=== PATIENT | female | born 1945 | race Caucasian/White ===

== ENCOUNTER 2018-12-30 11:41 | Emergency (ER) | payer OTHER ==
[2018-12-30 11:58] VITALS: BP 132/93; PULSE 71; TEMP 98.3; BMI 36.6
--- NOTE | 2018-12-30 12:04 | PDOC ---
Rapid Medical Evaluation Chief Complaint: Shortness of Breath Time Seen by Provider: 12/30/18 12:02 Medical Evaluation: Allergies Allergy/AdvReac Type Severity Reaction Status Date / Time No Known Allergies Allergy Verified 12/30/18 11:58 Vital Signs Temp Pulse Resp BP Pulse Ox 98.3 F 71 24 H 132/93 97 12/30/18 11:53 12/30/18 11:53 12/30/18 11:53 12/30/18 11:53 12/30/18 11:53 12/30/18 12:02 I have performed a brief in-person evaluation of this patient. The patient presents with a chief complaint of: SOB with total body itching- h/ o HBV Pertinent physical exam findings: Lungs CTAB. Hyperventilating. No obvious rash present. I have ordered the following: labs, urine, benadryl The patient will proceed to the ED for further evaluation. Discharge Disposition - Diagnosis Itching - Referrals - Patient Instructions - Post Discharge Activity
[2018-12-30 12:59] LABS: BASO % 0.5 % (0-2.0); EOS % 0.9 % (0-4.5); HEMATOCRIT 37.3 % (32.4-45.2); HEMOGLOBIN 12.6 GM/dL (10.7-15.3); LYMPH % 25.1 % (8-40); MCH 28.7 pg (25.7-33.7); MCHC 33.7 g/dl (32.0-36.0); MEAN CELL VOLUME 85.1 fl (80-96); MEAN PLT VOLUME 8.4 fl (7.5-11.1); MONO % 12.4 % (3.8-10.2); NEUT % 61.1 % (42.8-82.8); PLATELET COUNT 238 K/MM3 (134-434); RBC 4.39 M/mm3 (3.60-5.2); RDW 14.2 % (11.6-15.6)
[2018-12-30 13:18] LABS: ALBUMIN 3.4 g/dl (3.4-5.0); BILIRUBIN,TOTAL 0.5 mg/dL (0.2-1); BLOOD UREA NITROGEN 16.9 mg/dL (7-18); CALCIUM 9.2 mg/dL (8.5-10.1); CREATININE 0.8 mg/dL (0.55-1.3); POTASSIUM 4.6 mmol/L (3.5-5.1); TOT PROT 6.9 g/dl (6.4-8.2)
--- NOTE | 2018-12-30 14:58 | PDOC ---
Documentation entered by Valeria Weaver SCRIBE, acting as scribe for Candido Rojas MD. Candido Rojas MD: This documentation has been prepared by the scribeOwen Natalie, SCRIBE, under my direction and personally reviewed by me in its entirety. I confirm that the documentation accurately reflects all work, treatment, procedures, and medical decision making performed by me. History of Present Illness - General Chief Complaint: Shortness of Breath Stated Complaint: RASH Time Seen by Provider: 12/30/18 12:02 History Source: Patient Exam Limitations: No Limitations - History of Present Illness Initial Comments: 12/30/18 13:00 The patient is a 73-year-old Panamanian-speaking female, with a past medical history of HTN, who presents to the ED with 5 days of diffuse itching. The patient has notable redness to the skin. She denies taking any medication at home. She denies any chest pain or shortness of breath. Denies any fevers, chills, nausea, vomiting, diarrhea, or abdominal pain. Allergies: NKA Past History - Past Medical History Allergies/Adverse Reactions: Allergies Allergy/AdvReac Type Severity Reaction Status Date / Time No Known Allergies Allergy Verified 12/30/18 11:58 COPD: No HTN: Yes Liver Disease: (hep b) - Surgical History Appendectomy: Yes - Suicide/Smoking/Psychosocial Hx Smoking History: Never smoked Review of Systems - Review of Systems Able to Perform ROS?: Yes Comments:: 12/30/18 13:01 CONSTITUTIONAL: No fever, no chills, no fatigue EYES: No visual changes ENT: No ear pain, no sore throat CARDIOVASCULAR: No chest pain, no palpitations RESPIRATORY: No cough, no SOB GI: No abdominal pain, no nausea, no vomiting, no constipation, no diarrhea GENITOURINARY: No dysuria, no frequency, no hematuria MUSKULOSKELETAL: No back pain, no joint pain, no myalgias SKIN: (+)Diffuse redness. NEURO: No headache *Physical Exam - Vital Signs Last Vital Signs Temp Pulse Resp BP Pulse Ox 98.3 F 71 24 H 132/93 97 12/30/18 11:53 12/30/18 11:53 12/30/18 11:53 12/30/18 11:53 12/30/18 11:53 - Physical Exam Comments: 12/30/18 13:02 CONSTITUTIONAL: Well-appearing; well-nourished; in no apparent distress HEAD: Normocephalic; atraumatic EYES: PERRL; EOM intact ENMT: External appears normal; normal oropharynx; uvula is midline and is not edematous NECK: Supple; non-tender; no cervical lymphadenopathy, no stridor CARD: Normal S1, S2; no murmurs, rubs, or gallops RESP: Normal chest excursion with respiration; breath sounds clear and equal bilaterally; no wheezes, rhonchi, or rales ABD: Soft, non-distended; non-tender; no palpable organomegaly, no palpable hernias EXT: Normal ROM in all four extremities; non-tender to palpation; distal pulses intact SKIN: Warm, dry, +Urticarial rash to anterior chest and upper back, blanching, without evidence of petechia NEURO: No focal neurological deficiencies. General Appearance: Yes: Appropriately Dressed ED Treatment Course - LABORATORY CBC & Chemistry Diagram: 12/30/18 12:36 12/30/18 12:36 - ADDITIONAL ORDERS Additional order review: 12/30/18 12:36 RBC 4.39 MCV 85.1 MCHC 33.7 RDW 14.2 MPV 8.4 Neutrophils % 61.1 Lymphocytes % 25.1 Monocytes % 12.4 H Eosinophils % 0.9 Basophils % 0.5 - Medications Given in the ED: ED Medications Discontinued Medications Generic Name Dose Route Start Last Admin Trade Name Freq PRN Reason Stop Dose Admin Diphenhydramine HCl 25 mg 12/30/18 12:06 12/30/18 12:38 Benadryl Injection - IM 12/30/18 12:07 Not Given ONCE ONE Diphenhydramine HCl 25 mg 12/30/18 12:26 12/30/18 12:37 Benadryl Injection - IVPUSH 12/30/18 12:27 25 mg ONCE ONE Administration Medical Decision Making - Medical Decision Making 12/30/18 14:56 Patient 73-year-old female with history of hypercholesterolemia who presents with pruritus and urticarial-like rash to anterior chest and upper back. There is no evidence of generalized ALLERGIC reaction. No airway issues are present. Patient received Benadryl with resolution of her symptoms. We'll discharge. *DC/Admit/Observation/Transfer Diagnosis at time of Disposition: Itching, Pruritic rash - Discharge Dispostion Disposition: HOME Condition at time of disposition: Stable - Referrals Referrals: Alonso Tolliver MD [Staff Physician] - - Patient Instructions Printed Discharge Instructions: DI for Rash Additional Instructions: take Benadryl-25 mg orally every 4 hours as needed. Return immediately for difficulty breathing, facial swelling Print Language: AZERI - Post Discharge Activity
== END 2018-12-30 16:21 | disposition home or self-care (01) ==
LOC: JER 11:41
PROC: 3E033GC Introduction of Other Therapeutic Substance into Peripheral Vein, Percutaneous Approach (ICD-10-PCS; principal; 2018-12-30)
DX: R21 Rash and other nonspecific skin eruption (principal); L29.8 Other pruritus; I10 Essential (primary) hypertension; B19.10 Unspecified viral hepatitis B without hepatic coma
CPT/HCPCS: 36415; 80053; 85025; 99281-25

== ENCOUNTER 2019-07-09 09:31 | Emergency (ER) | payer OTHER ==
[2019-07-09 09:41] VITALS: BMI 35.2
[2019-07-09 10:44] LABS: BASO % 0.6 % (0-2.0); EOS % 0.7 % (0-4.5); HEMATOCRIT 41.2 % (32.4-45.2); HEMOGLOBIN 13.9 GM/dL (10.7-15.3); LYMPH % 25.8 % (8-40); MCHC 33.8 g/dl (32.0-36.0); MEAN CELL VOLUME 85.9 fl (80-96); MEAN PLT VOLUME 8.1 fl (7.5-11.1); MONO % 8.6 % (3.8-10.2); NEUT % 64.3 % (42.8-82.8); PLATELET COUNT 236 K/MM3 (134-434); RDW 14.1 % (11.6-15.6); WHITE BLOOD COUNT 5.1 K/mm3 (4.0-10.0)
[2019-07-09 11:10] LABS: EPI CELLS 3.9 /HPF (0-5/HPF); HYALINE CASTS 0 /lpf (0-8); PH,URINE >= 9.0 (5.0-8.0); URINE APPEARANCE CLEAR; URINE BACTERIA 86.7 /hpf (NEGATIVE); URINE BILIRUBIN NEGATIVE (NEGATIVE); URINE COLOR YELLOW; URINE GLUCOSE (UA) NEGATIVE (NEGATIVE); URINE KETONE NEGATIVE (NEGATIVE); URINE LEUK ESTERASE TRACE (NEGATIVE); URINE NITRITE NEGATIVE (NEGATIVE); URINE PROTEIN NEGATIVE (NEGATIVE); URINE RBC 2 /hpf (0-4); URINE UROBILINOGEN 0.2 mg/dL (0.2-1.0); URINE WBC 6 /hpf (0-5)
--- NOTE | 2019-07-09 11:11 | PDOC ---
History of Present Illness - General Chief Complaint: Pain Stated Complaint: BODY PAIN Time Seen by Provider: 07/09/19 10:04 - History of Present Illness Initial Comments: 07/09/19 11:00 73f with pmh of HTN presents with vague symptoms of nervousness for the past 2 weeks and feeling like her "stomach is weak" or "isn't there". She has seen her PCp DR. Rodrigez for this last week and he startged her on Prozac with no relief of symptoms. Patient denies dizziness, nausea, vomiting, diarrhea, abdominal pain, constipation or dysuria. Is able to eat and drink normally. Past History - Past Medical History Allergies/Adverse Reactions: Allergies Allergy/AdvReac Type Severity Reaction Status Date / Time No Known Allergies Allergy Verified 07/09/19 09:39 Home Medications: Ambulatory Orders Amlodipine Besylate [Norvasc -] 5 mg PO DAILY 07/09/19 Fluoxetine HCl [Prozac] 10 mg PO DAILY 07/09/19 Temazepam 15 mg PO ASDIR 07/09/19 COPD: No HTN: Yes Liver Disease: (hep b) - Surgical History Appendectomy: Yes - Psycho Social/Smoking Cessation Hx Smoking History: Never smoked Hx Alcohol Use: No Drug/Substance Use Hx: No Review of Systems - Review of Systems Able to Perform ROS?: Yes Is the patient limited Persian proficient: No Constitutional: No: Symptoms Reported HEENTM: No: Symptoms Reported Respiratory: No: Symptoms reported Cardiac (ROS): No: Symptoms Reported ABD/GI: No: Symptoms Reported Integumentary: No: Symptoms Reported Neurological: Yes: See HPI All Other Systems: Reviewed and Negative *Physical Exam - Vital Signs Last Vital Signs Temp Pulse Resp BP Pulse Ox 98.2 F 75 22 H 144/77 100 07/09/19 09:40 07/09/19 09:40 07/09/19 09:40 07/09/19 09:40 07/09/19 09:40 - Physical Exam General Appearance: Yes: Nourished, Appropriately Dressed. No: Apparent Distress HEENT: positive: EOMI, JOSELIN, Normal ENT Inspection Respiratory/Chest: positive: Lungs Clear, Normal Breath Sounds, Rapid RR. negative: Chest Tender, Respiratory Distress Cardiovascular: positive: Regular Rhythm, Regular Rate, S1, S2 Gastrointestinal/Abdominal: positive: Normal Bowel Sounds, Flat, Soft. negative : Tender Extremity: positive: Normal Capillary Refill, Normal Inspection, Normal Range of Motion Integumentary: positive: Normal Color, Dry, Warm Neurologic: positive: Fully Oriented, Alert. negative: Normal Mood/Affect ( anxious affect) ED Treatment Course - LABORATORY CBC & Chemistry Diagram: 07/09/19 10:30 07/09/19 10:30 - ADDITIONAL ORDERS Additional order review: 07/09/19 10:30 RBC 4.80 MCV 85.9 MCHC 33.8 RDW 14.1 MPV 8.1 Neutrophils % 64.3 Lymphocytes % 25.8 Monocytes % 8.6 Eosinophils % 0.7 Basophils % 0.6 - RADIOLOGY Radiology Studies Ordered: Category Date Time Status CHEST X-RAY PORTABLE* [RAD] Stat Radiology 07/09/19 10:15 Taken Medical Decision Making - Medical Decision Making 07/09/19 11:18 EKG within normal limits. Will obtain tsh to r/o hyperthyroidism. Low suspicion for carcinoid tumor due to no vomiting or flushing but will obtain ct abdomen due to the bizarre description of symptoms in the context of this patient's age. 07/09/19 11:42 All labs wnl, will continue evaluation with ct abdomen pelvis. 07/09/19 15:26 Ct with no sign of acute processes. Ok to dc with follow up, patient feels better. Discharge - Discharge Information Problems reviewed: Yes Clinical Impression/Diagnosis: Nervousness Condition: Improved Disposition: HOME - Admission No - Follow up/Referral Referrals: Kashif Rodrigez MD [Staff Physician] - - Patient Discharge Instructions Patient Printed Discharge Instructions: DI for Anxiety -- Adult Additional Instructions: Follow up with Dr. Rodrigez within the next 4 days. Come back to the emergency department for any new, worsening or concerning symptom. - Post Discharge Activity
[2019-07-09 11:17] LABS: ALBUMIN 3.9 g/dl (3.4-5.0); BILIRUBIN,TOTAL 0.7 mg/dL (0.2-1); BLOOD UREA NITROGEN 10.5 mg/dL (7-18); CALCIUM 9.8 mg/dL (8.5-10.1); POTASSIUM 3.6 mmol/L (3.5-5.1); TOT PROT 7.6 g/dl (6.4-8.2)
--- NOTE | 2019-07-09 11:42 | PDOC ---
Documentation entered by Duarte Lewis SCRIBE, acting as scribe for Rachel Carballo MD. Rachel Carballo MD: This documentation has been prepared by the Joshua philip Nirvannie, SCRIBE, under my direction and personally reviewed by me in its entirety. I confirm that the documentation accurately reflects all work, treatment, procedures, and medical decision making performed by me. Attending Attestation - Resident Resident Name: DicksonShorty - ED Attending Attestation I have performed the following: I have examined & evaluated the patient, The case was reviewed & discussed with the resident, I agree w/resident's findings & plan, Exceptions are as noted - HPI HPI: 07/09/19 11:00 The patient is a year old female, with a significant past medical history of HTN , chronic insomnia, and anxiety who presents to the emergency department with 2 weeks of tremors to the bilateral hands and mouth. As per patient, she was recently evaluated by her PCP Dr. Rodrigez at which time she was prescribed Fluoxetine. She notes taking the medication, without relief, prompting her arrival to the ED. Patient notes associated sensation that her stomach is not there. Patient is tolerating PO intake and has normal BMs. She denies any SI or HI. She denies recent fevers, chills, headache or dizziness. She denies recent nausea, vomit, diarrhea or constipation. She denies recent dysuria, frequency, urgency or hematuria. She denies recent chest pain or shortness of breath. Allergies: NKDA Primary Care Physician: Dr. Rodrigez - Physicial Exam PE: 07/09/19 11:00 GENERAL: +Mildly anxious. Awake, alert, and fully oriented, in no acute distress HEAD: No signs of trauma EYES: PERRLA, EOMI, sclera anicteric, conjunctiva clear ENT: Auricles normal inspection, hearing grossly normal, nares patent, oropharynx clear without exudates. Moist mucosa NECK: Normal ROM, supple, no lymphadenopathy, JVD, or masses LUNGS: Breath sounds equal, clear to auscultation bilaterally. No wheezes, and no crackles HEART: Regular rate and rhythm, normal S1 and S2, no murmurs, rubs or gallops ABDOMEN: Soft, nontender, normoactive bowel sounds. No guarding, no rebound. No masses EXTREMITIES: Normal range of motion, no edema. No clubbing or cyanosis. No cords, erythema, or tenderness NEUROLOGICAL:+Fine tremor to the mouth. +Fine tremors to the bilateral hands. Cranial nerves II through XII grossly intact. Normal speech. SKIN: Warm, Dry, normal turgor, no rashes or lesions noted. - Medical Decision Making 07/09/19 11:24 Pt presents to the ED complaining of anxiety, tremors and abdominal discomfort. Differential includes anxiety, less likely hyperthyroidism, less likely intraabdominal pathology. Will check labs and CT abdomen pelvis, reassess. 07/09/19 11:41
--- NOTE | 2019-07-09 12:23 | EKG ---
Test Reason : Blood Pressure : / mmHG Vent. Rate : 060 BPM Atrial Rate : 060 BPM P-R Int : 138 ms QRS Dur : 086 ms QT Int : 428 ms P-R-T Axes : 037 -26 037 degrees QTc Int : 428 ms NORMAL SINUS RHYTHM MINIMAL VOLTAGE CRITERIA FOR LVH, MAY BE NORMAL VARIANT NONSPECIFIC T WAVE ABNORMALITY ABNORMAL ECG NO PREVIOUS ECGS AVAILABLE Confirmed by GEGE FABIAN MD ([id number]) on 07/09/2019 12:22:42 PM Referred By: Confirmed By:GEGE FABIAN MD
[2019-07-09 16:18] VITALS: BP 143/78; PULSE 60; TEMP 98.3
== END 2019-07-09 16:00 | disposition home or self-care (01) ==
LOC: JER 09:31
DX: F41.9 Anxiety disorder, unspecified (principal); R45.0 Nervousness; I10 Essential (primary) hypertension; B19.10 Unspecified viral hepatitis B without hepatic coma
CPT/HCPCS: 36415; 71045-TC-FY; 74177-TC; 80053; 81003; 84443; 84484; 85025; 87086; 93005; 93010; 99285-25; Q9967

== ENCOUNTER 2020-06-24 17:35 | Emergency (ER) | payer OTHER ==
[2020-06-24 17:59] VITALS: TEMP 98.2; BMI 32.3
[2020-06-24] MEDS ORDERED: ALPRAZolam 0.25 MG TABLET PO ONE ×2 (18:27→18:32)
[2020-06-24] MEDS ORDERED: ALPRAZolam 0.25 MG TABLET ONE (18:36)
[2020-06-24] MEDS ORDERED: ONDANSETRON *ODT* 4 MG TABLET SL ONE (18:41)
[2020-06-24] MEDS ORDERED: ONDANSETRON *ODT* 4 MG TABLET ONE (19:12)
[2020-06-24 19:53] LABS: BASO % 0.4 % (0-2.0); EOS % 0.7 % (0-4.5); HEMATOCRIT 39.4 % (32.4-45.2); HEMOGLOBIN 13.1 GM/dL (10.7-15.3); LYMPH % 17.4 % (8-40); MCH 28.2 pg (25.7-33.7); MCHC 33.1 g/dl (32.0-36.0); MEAN CELL VOLUME 85.1 fl (80-96); MEAN PLT VOLUME 8.9 fl (7.5-11.1); MONO % 7.1 % (3.8-10.2); NEUT % 74.4 % (42.8-82.8); PLATELET COUNT 251 K/MM3 (134-434); RBC 4.63 M/mm3 (3.60-5.2); RDW 14.3 % (11.6-15.6); WHITE BLOOD COUNT 8.6 K/mm3 (4.0-10.0)
[2020-06-24 20:11] LABS: CHLORIDE 104 mmol/L (98-107); POTASSIUM 3.2 mmol/L (3.5-5.1); SODIUM 138 mmol/L (136-145)
[2020-06-24] MEDS ORDERED: POTASSIUM CHLORIDE TABS 20 MEQ TABLET.ER (FP) PO ONE ×2 (20:12→20:40)
[2020-06-24 20:14] LABS: ALBUMIN 3.8 g/dl (3.4-5.0); ANION GAP 9 MMOL/L (8-16); BLOOD UREA NITROGEN 12.4 mg/dL (7-18); CO2 26 mmol/L (21-32); GLUCOSE,RANDOM 120 mg/dL (74-106)
[2020-06-24 20:17] LABS: SGOT/AST 19 U/L (15-37); SGPT/ALT 17 U/L (13-61)
[2020-06-24 20:19] LABS: BILIRUBIN,TOTAL 0.6 mg/dL (0.2-1); TOT PROT 7.4 g/dl (6.4-8.2)
[2020-06-24 20:20] LABS: ALK PHOS 78 U/L (45-117)
[2020-06-24 21:28] VITALS: BP 160/72; PULSE 76
== END 2020-06-24 21:29 | disposition home or self-care (01) ==
LOC: JER 17:35
DX: R11.0 Nausea (principal); F41.9 Anxiety disorder, unspecified; E87.6 Hypokalemia
CPT/HCPCS: 36415; 80053; 84484; 85025; 93005; 93010; 99284-25; Q0162

== ENCOUNTER 2022-07-24 09:32 | Emergency (ER) | payer OTHER ==
[2022-07-24 09:45] VITALS: BMI 32.9
[2022-07-24 11:20] LABS: PH,URINE 8.5 (5.0-8.0); URINE APPEARANCE CLEAR; URINE BILIRUBIN NEGATIVE (NEGATIVE); URINE COLOR YELLOW; URINE GLUCOSE (UA) NEGATIVE (NEGATIVE); URINE KETONE NEGATIVE (NEGATIVE); URINE LEUK ESTERASE NEGATIVE (NEGATIVE); URINE NITRITE NEGATIVE (NEGATIVE); URINE PROTEIN NEGATIVE (NEGATIVE); URINE UROBILINOGEN 0.2 mg/dL (0.2-1.0)
[2022-07-24 11:22] LABS: BASO % 0.5 % (0-2.0); EOS % 2.3 % (0-4.5); HEMATOCRIT 39.7 % (32.4-45.2); HEMOGLOBIN 13.1 GM/dL (10.7-15.3); LYMPH % 29.9 % (8-40); MCH 28.5 pg (25.7-33.7); MCHC 32.9 g/dl (32.0-36.0); MEAN CELL VOLUME 86.4 fl (80-96); MEAN PLT VOLUME 8.8 fl (7.5-11.1); MONO % 9.2 % (3.8-10.2); NEUT % 58.1 % (42.8-82.8); PLATELET COUNT 230 10^3/uL (134-434); RBC 4.59 M/mm3 (3.60-5.2); RDW 14.6 % (11.6-15.6); WHITE BLOOD COUNT 5.8 K/mm3 (4.0-10.0)
[2022-07-24 11:53] LABS: ALBUMIN 3.8 g/dl (3.4-5.0); BLOOD UREA NITROGEN 17.4 mg/dL (7-18); CALCIUM 9.4 mg/dL (8.5-10.1)
[2022-07-24 11:55] LABS: BILIRUBIN,TOTAL 0.6 mg/dL (0.2-1)
[2022-07-24 11:58] LABS: TOT PROT 7.6 g/dl (6.4-8.2)
[2022-07-24 12:15] LABS: LACTIC ACID 4.4 mmol/L (0.4-2.0)
[2022-07-24 12:37] VITALS: RESP 16
[2022-07-24 13:51] VITALS: BP 118/60; PULSE 64; TEMP 97.7
== END 2022-07-24 14:15 | disposition home or self-care (01) ==
LOC: JER 09:32
DX: R25.9 Unspecified abnormal involuntary movements (principal)
CPT/HCPCS: 36415; 71045-TC-FY; 80053; 81003; 82962; 83605; 84484; 85025; 87040; 87086; 93005; 93010; 99285-25